=== PATIENT | female | born 1995 | race Caucasian/White ===

== ENCOUNTER → 2016-10-18 | Outpatient (CLI) | payer OTHER ==
[2016-10-18 13:07] LABS: MEAN CORPUSCULAR HEMOGLOBIN 25.6 pg (27.0-33.0); MEAN CORPUSCULAR HGB CONC 32.1 g/dl (32.0-36.5); MEAN CORPUSCULAR VOLUME 79.6 fl (80.0-96.0); RED CELL DISTRIBUTION WIDTH 13.7 % (11.5-14.5); WHITE BLOOD COUNT 8.4 K/mm3 (4.0-10.0)
[2016-10-18 13:48] LABS: ALBUMIN 4.3 GM/DL (3.2-5.2); ALBUMIN/GLOBULIN RATIO 1.48 (1.00-1.93); ALKALINE PHOSPHATASE 80 U/L (45-117); ALT/SGPT 13 U/L (12-78); AST/SGOT 20 U/L (15-37); BILIRUBIN,DIRECT 0.1 MG/DL (0.0-0.2); BILIRUBIN,TOTAL 0.4 MG/DL (0.2-1.0); CHOLESTEROL LEVEL 147 MG/DL (<200); TOTAL PROTEIN 7.2 GM/DL (6.4-8.2); TRIGLYCERIDES LEVEL 101 MG/DL (<150)
[2016-10-21 15:11] LABS: ANION GAP 7 MEQ/L (8-16); BLOOD UREA NITROGEN 7 MG/DL (7-18); CALCIUM LEVEL 8.8 MG/DL (8.5-10.1); CARBON DIOXIDE LEVEL 26 MEQ/L (21-32); CHLORIDE LEVEL 107 MEQ/L (98-107); CREATININE FOR GFR 0.57 MG/DL (0.55-1.02); GLUCOSE, FASTING 83 MG/DL (70-105); POTASSIUM SERUM 4.2 MEQ/L (3.5-5.1); SODIUM LEVEL 140 MEQ/L (136-145)
== END ==
LOC: M LAB 11:59
PROVIDERS: ATTEND Nurse Practitioner Family
DX: E34.9 Endocrine disorder, unspecified (principal)

== ENCOUNTER → 2018-09-04 | Outpatient (REF) | payer BC, OTHER ==
[2018-09-04 14:49] LABS: BASO # 0.1 10^3/uL (0.0-0.2); BASO % 0.6 % (0.0-1.0); EOS # 0.2 10^3/uL (0.0-0.50); HEMATOCRIT 41.7 % (36.0-47.0); HEMOGLOBIN 13.4 g/dl (12.0-15.5); LYMPH # 2.7 10^3/uL (1.5-6.5); LYMPH % 33.2 % (24.0-44.0); MEAN CORPUSCULAR HEMOGLOBIN 24.8 pg (27.0-33.0); MEAN CORPUSCULAR HGB CONC 32.1 g/dl (32.0-36.5); MEAN CORPUSCULAR VOLUME 77.2 fl (80.0-96.0); MONO # 0.4 10^3/uL (0.0-0.8); MONO % 4.5 % (0.0-5.0); NEUTROPHILS # 4.8 10^3/uL (1.8-7.7); NEUTROPHILS % 59.6 % (36.0-66.0); PLATELET COUNT, AUTOMATED 316 10^3/uL (150-450)
[2018-09-04 14:56] LABS: ALBUMIN 4.3 GM/DL (3.2-5.2); ALT/SGPT 24 U/L (12-78); BILIRUBIN,TOTAL 0.4 MG/DL (0.2-1.0); BLOOD UREA NITROGEN 10 MG/DL (7-18); CALCIUM LEVEL 8.8 MG/DL (8.5-10.1); CARBON DIOXIDE LEVEL 27 MEQ/L (21-32); CHLORIDE LEVEL 104 MEQ/L (98-107); CHOLESTEROL LEVEL 156 MG/DL (<200); CREATININE FOR GFR 0.73 MG/DL (0.55-1.30); GLOMERULAR FILTRATION RATE > 60.0 (>60); GLUCOSE, FASTING 94 MG/DL (70-100); HDL CHOLESTEROL 48 MG/DL (>40); LDL CHOLESTEROL 71 MG/DL (<100); NON-HDL-C 108 MG/DL; POTASSIUM SERUM 3.7 MEQ/L (3.5-5.1); SODIUM LEVEL 138 MEQ/L (136-145); TOTAL PROTEIN 7.7 GM/DL (6.4-8.2); TRIGLYCERIDES LEVEL 184 MG/DL (<150)
[2018-09-04 15:02] LABS: TESTOSTERONE 17 NG/DL (14-76)
[2018-09-04 15:32] LABS: HEMOGLOBIN A1c 6.1 %
== END ==
LOC: M LAB REF 14:11
PROVIDERS: ATTEND Nurse Practitioner Adult Health
DX: Z79.890 Hormone replacement therapy (principal)

== ENCOUNTER → 2018-11-20 | Outpatient (REF) | payer BC | LOC: M LAB REF 18:58 | PROVIDERS: ATTEND Nurse Practitioner Adult Health | DX: Z79.890 Hormone replacement therapy (principal) ==

== ENCOUNTER → 2019-01-26 | Outpatient (REF) | payer BC ==
[~2019-01-26] MED LIST: ALEV220T22 PO; BIOT1CAP3 PO; DEPO200I7 IM
[2019-01-26 18:05] LABS: BASO % 0.7 % (0.0-1.0); EOS # 0.2 10^3/uL (0.0-0.50); EOS % 2.6 % (0.0-3.0); HEMATOCRIT 42.6 % (36.0-47.0); LYMPH # 2.3 10^3/uL (1.5-6.5); LYMPH % 39.5 % (24.0-44.0); MEAN CORPUSCULAR HEMOGLOBIN 22.4 pg (27.0-33.0); MEAN CORPUSCULAR HGB CONC 30.5 g/dl (32.0-36.5); MEAN CORPUSCULAR VOLUME 73.3 fl (80.0-96.0); MONO # 0.3 10^3/uL (0.0-0.8); MONO % 5.6 % (0.0-5.0); NEUTROPHILS % 51.4 % (36.0-66.0); PLATELET COUNT, AUTOMATED 298 10^3/uL (150-450); RED BLOOD COUNT 5.81 10^6/uL (4.00-5.40); WHITE BLOOD COUNT 5.9 10^3/uL (4.0-10.0)
[2019-01-26 18:38] LABS: ALBUMIN 4.1 GM/DL (3.2-5.2); ALT/SGPT 29 U/L (12-78); BILIRUBIN,TOTAL 0.4 MG/DL (0.2-1.0); BLOOD UREA NITROGEN 10 MG/DL (7-18); CARBON DIOXIDE LEVEL 27 MEQ/L (21-32); CHLORIDE LEVEL 105 MEQ/L (98-107); CREATININE FOR GFR 0.97 MG/DL (0.55-1.30); GLOMERULAR FILTRATION RATE > 60.0 (>60); GLUCOSE, FASTING 74 MG/DL (70-100); HCG, SERUM QUANTITATIVE < 1.0 MIU/ML; POTASSIUM SERUM 5.5 MEQ/L (3.5-5.1); SODIUM LEVEL 138 MEQ/L (136-145); TOTAL PROTEIN 7.6 GM/DL (6.4-8.2)
== END ==
LOC: EDSEX → M LAB REF 17:21
PROVIDERS: ATTEND Nurse Practitioner Family
DX: Z00.00 Encounter for general adult medical examination without abnormal findings (principal)

== ENCOUNTER 2019-02-08 06:07 | Day surgery (SDC) | payer BC ==
[~2019-02-08] VITALS: Ht 165.1 cm; Wt 83.9 kg
[2019-02-08] VITALS (7 sets, daily range): BP systolic 128–133; BP diastolic 78–91
[2019-02-08] MEDS ORDERED: LR 1,000 ML IV ONE (06:15)
[2019-02-08] MEDS ORDERED: ceFAZolin SOD 1 GM in D5W MINI-BAG PLUS 50 ML IV ONE (06:15)
[2019-02-08 06:42] LABS: URINE PREG TEST NEGATIVE (NEGATIVE)
[2019-02-08] MEDS ORDERED: BACITRACIN PWD 50,000 UNITS VIAL As Ordered ONE (07:12)
[2019-02-08] MEDS ORDERED: dexameTHASONE 4 MG/ML 1ML VIAL (J1100) As Ordered ONE (07:18)
[2019-02-08] MEDS ORDERED: LIDOCAINE 2% INJ 100 MG/5 ML SDV (FOR ANES.) As Ordered ONE (07:18)
[2019-02-08] MEDS ORDERED: PROPOFOL 200 MG/20 ML VIAL As Ordered ONE (07:18)
[2019-02-08] MEDS ORDERED: ONDANSETRON 4MG/2ML VIAL (J2405) As Ordered ONE ×2 (07:18→09:57)
[2019-02-08] MEDS ORDERED: ROCURONIUM BROMIDE 50 MG/5 ML VIAL As Ordered ONE ×2 (07:18→09:20)
[2019-02-08] MEDS ORDERED: fentaNYL 250 MCG/5 ML INJECTION (J3010) As Ordered ONE (07:18)
[2019-02-08] MEDS ORDERED: MIDAZOLAM INJ 2 MG/2 ML VIAL (J2250) As Ordered ONE (07:18)
[2019-02-08] MEDS ORDERED: BUPIVACAINE LIPOSOME/PF 1.3% 20ML VIAL (13.3MG/ML)(EXPAREL)(C9290 PER1MG) As Ordered ONE (07:25)
[2019-02-08] MEDS ORDERED: PHENYLephrine HCL 500 MCG/5 ML (100MCG/ML) SYRINGE (J2370) As Ordered ONE (08:09)
[2019-02-08] MEDS ORDERED: ACETAMINOPHEN 1000MG 100ML IV BTL (OFIRMEV) (J0131 PER 10MG) As Ordered ONE (08:26)
[2019-02-08] MEDS ORDERED: HEPARIN SOD (PORCINE) 5000 UNITS/ML VIAL As Ordered ONE (08:26)
[2019-02-08] MEDS ORDERED: ePHEDrine SULFATE 25 MG/5 ML(5MG/ML) SYRINGE As Ordered ONE (09:04)
[2019-02-08] MEDS ORDERED: SEVOFLURANE INHAL SOLN 250 ML BTL As Ordered ONE (09:45)
[2019-02-08] MEDS ORDERED: NEOSTIGMINE 10 MG/10 ML VIAL (J2710) As Ordered ONE (09:57)
[2019-02-08] MEDS ORDERED: KETOROLAC 60 MG/2 ML VIAL (J1885) As Ordered ONE (09:57)
[2019-02-08] MEDS ORDERED: GLYCOPYRROLATE INJ 0.2 MG/ML 2 ML VIAL As Ordered ONE (09:57)
[2019-02-08] MEDS ORDERED: HYDROmorphone HCL 2 MG/ML 1ML VIAL (J1170) As Ordered ONE (10:02)
--- NOTE | 2019-02-08 11:43 | POST-OPPD ---
Postoperative Procedure Note Date Of Procedure: Feb 08, 2019 PREOPERATIVE DIAGNOSIS: Gender Dysphoria, breast hypertrophy POSTOPERATIVE DIAGNOSIS: same FINDINGS: Female breasts PROCEDURE: Chest masculinization procedure via bilateral subcutaneous mastectomies with free nipple graft. SURGEON: Dr Stanton GOLF COURSE SUPERINTENDENT: Dr Verma ANESTHESIA: general SPECIMENS: Right breast 815G, Left breast 912G ESTIMATED BLOOD LOSS: 75 cc REPLACED: none DRAINS: 10 mm LIANNE drains x 2 COMPLICATIONS: none POSTOPERATIVE CONDITION: stable Dict: [id number] ANDRES STANTON DO Feb 08, 2019 11:43
[2019-02-08] MEDS ORDERED: fentaNYL 100 MCG/2 ML INJECTION (J3010) IV PRN ×2 (12:15→13:45)
[2019-02-08] MEDS ORDERED: LR 1,000 ML IV SCH ×2 (12:15→13:45)
[2019-02-08] MEDS ORDERED: oxyCODONE 5MG TAB PO PRN ×2 (12:15→13:45)
[2019-02-08] MEDS: LR 1,000 ML IV SCH (12:45)
[2019-02-08] MEDS ORDERED: MORPHINE 4 MG/ML 1ML VIAL/SYRINGE (J2270) IV PRN (12:45)
[2019-02-08] MEDS ORDERED: ONDANSETRON 4MG/2ML VIAL (J2405) IV PRN (12:45)
--- NOTE | 2019-02-08 14:24 | RO ---
DATE OF PROCEDURE: 02/08/2019 PREOPERATIVE DIAGNOSIS: Gender dysphoria, breast hypertrophy. POSTOPERATIVE DIAGNOSIS: Gender dysphoria, breast hypertrophy. PROCEDURE: Chest masculinization procedure via bilateral subcutaneous mastectomies with free nipple graft. ATTENDING SURGEON: Sharmaine Madsen DO [facility] ATTENDANT: Tg Verma DO ANESTHESIA: General. SPECIMENS SENT: Right breast 815 grams, left breast 912 grams. BLOOD LOSS: 75 mL. DRAINS: Two 10 mm Dillon-Sargent drains. POSTOP CONDITION: Stable. COMPLICATIONS: No complications. PROCEDURE: This is a 23-year-old transgender male who was seen in our office for a consultation for a top procedure. He fits the criteria and healthy. Preop medical clearance was obtained. The patient had stopped testosterone three weeks ago. The psychiatric letter is on file as well. The patient is ready for surgery. All the risks, benefits and alternatives were discussed with the patient, and again discussed this morning. He is willing to go for the surgery. The mother and his fiance are present at the bedside. We are choosing to do free nipple approach. The patient was marked in the upright position in the preop holding area. We then took the patient to the operating room and placed in supine position. Preoperative antibiotics were given. Sequentials placed on the lower calves. General anesthesia was induced. 5000 units of heparin were given subcu before the procedure started. He was prepped and draped in the usual sterile fashion. We started our procedure on the right side, marked out for a double incision pattern, which started on the right side with a 10 blade and then dissection carried out using a 10 blade electrocautery and PEAK cautery. Subcuticular mastectomy was performed using a thick flap and then inferiorly we have undermined the IMF, eliminating the IMF that corresponds to the female breast and the inferior incision was lifted slightly higher to remake the male breast. We closed our incision with interrupted #0 Vicryl sutures. The area was irrigated with bacitracin irrigation and then Exparel was given into the pectoralis muscle on the lateral chest where the incision was extending fro pain control, 8 mL total. Then we started the closure with interrupted #0 Vicryl sutures and interrupted #3-0 Monocryl sutures. The medial portion of the incision was left alone, closer to the sternum, then we placed a 10 mm Dillon-Sargent drain through the lateral portion of the horizontal incision. Then we turned our attention to the left side and a mirror procedure was done. A double incision was created, the subcuticular mastectomy was done using Bovie and the PEAK. Hemostasis was obtained. The breast tissue was removed leaving thick flaps which have created a nice contour. The excess tissue was found in the middle portion between the breasts so we have readjusted and made a uniform incision on the middle to eliminate the bubble and to create male angle between the breasts. So, all of that excess tissue was resected using electrocautery as well. The left breast was irrigated with bacitracin irrigation. Exparel was given into the muscle subcu totaling 8 mL and then we started our closure with interrupted #0 Vicryl sutures, and interrupted #3-0 Monocryl sutures. A 10 mm Dillon-Sargent drain was placed through the lateral portion of the incision. We had the breast specimen on the back field and then we took a graft from the nipple areolar complex, measured 2.5 cm in diameter. The corresponding openings were made on the breast flaps and a full thickness skin graft was then placed on both sides of the chest, like I said diameter 2.5 cm, sutured in place with #4-0 chromic sutures. Bulky dressing was applied with Xeroform and a cotton ball soaked in bacitracin irrigation and was sutured in place. For the inferior incision we used Prineo dressing, bulking dressing and a wrap was done. The patient was extubated in the operating room and transferred to the recovery room in stable condition.
[2019-02-08] MEDS: ceFAZolin SOD 1 GM in D5W MINI-BAG PLUS 50 ML IV SCH (15:51)
[2019-02-08] MEDS: PERCOCET 5MG/325MG TAB PO PRN (16:09)
[2019-02-09] MEDS: ceFAZolin SOD 1 GM in D5W MINI-BAG PLUS 50 ML IV SCH (00:08)
[2019-02-09] MEDS: PERCOCET 5MG/325MG TAB PO PRN ×2 (00:09→06:06)
[2019-02-09] MEDS: LR 1,000 ML IV SCH (02:11)
[2019-02-09 07:00] VITALS: BP 109/59
--- NOTE | 2019-02-09 08:08 | IPNPDOC ---
Subjective General Date/Time Seen The patient was seen on 02/09/19 at 08:05. Subject Chief Complaint/History The patient is a 23-year-old male admitted with a reason for visit of Gender Identity Disorder, Breast Hypertrophy. S/p chest masculinization procedure POD 1. Doing well. Pain controlled. Minimal drainage from LIANNE. Tolerating diet, ambulating. Current Medications Current Medications Current Medications Medications (Trade) Dose Ordered Sig/Kim Route PRN Reason Start Time Stop Time Status Last Admin Dose Admin Cefazolin Sodium 1 gm/Dextrose 50 ml @ 100 mls/hr Q8H IV 02/08/19 16:00 02/09/19 00:29 DC 02/09/19 00:08 Fentanyl Citrate (Sublimaze) 25 mcg Q5MP PRN IV MODERATE PAIN (PS 4-7) 02/08/19 12:15 02/08/19 13:15 DC Fentanyl Citrate (Sublimaze) 25 mcg Q5MP PRN IV MODERATE PAIN (PS 4-7) 02/08/19 13:45 02/08/19 14:45 DC Lactated Ringer's 1,000 ml @ 75 mls/hr [id number] IV 02/08/19 12:45 02/09/19 02:11 Lactated Ringer's 1,000 ml @ 100 mls/hr Q10H IV 02/08/19 12:15 02/08/19 13:15 DC 02/08/19 12:15 Lactated Ringer's 1,000 ml @ 100 mls/hr Q10H IV 02/08/19 13:45 02/08/19 14:45 DC Morphine Sulfate (Morphine Sulfate Inj) 4 mg Q4HP PRN IV SEVERE PAIN (PS 8-10) 02/08/19 12:45 Ondansetron HCl (ZOFRAN INJection) 4 mg Q6HP PRN IV NAUSEA 02/08/19 12:45 Oxycodone HCl (Roxicodone, Oxyir) 5 mg ASDIRECTED PRN PO MILD/MODERATE PAIN (PS 1-7) 02/08/19 12:15 02/08/19 13:15 DC Oxycodone HCl (Roxicodone, Oxyir) 5 mg ASDIRECTED PRN PO MILD/MODERATE PAIN (PS 1-7) 02/08/19 13:45 02/08/19 14:45 DC Oxycodone/ Acetaminophen (Percocet 5mg/ 325mg Tablet) 1 tab Q4HP PRN PO MODERATE PAIN (PS 5-7) 02/08/19 12:45 02/09/19 06:06 Allergies Coded Allergies: nystatin (Verified Allergy, Intermediate, rash, 01/30/19) Objective Physical Examination Examination GENERAL APPEARANCE:Patient seen, laying in bed, awake, alert, and oriented. Comfortable, in no acute distress. SKIN: Warm and moist. CHEST: Incision intact. NAC bolster dressing in place. Flaps viable, pink. Minimal post op pain. HEENT: Normocephalic, atraumatic. [place] palpebral conjunctiva, anicteric sclerae. Lips and mucosa appear moist. NECK: Supple, no thyromegaly. No obvious jugular venous distention. LUNGS: Clear to auscultation bilaterally. No wheezing appreciated. HEART: No chest wall abnormalities. Regular rate and rhythm with no murmurs appreciated. Vital Signs Vital Signs Date Time Temp Pulse Resp B/P (MAP) Pulse Ox O2 Delivery O2 Flow Rate FiO2 02/09/19 07:00 97.8 94 18 109/59 (76) 96 02/08/19 12:10 2 I&Os I&O- Last 24 Hours up to 6 AM 02/09/19 06:00 Intake Total 2960 ml Output Total 970 ml Balance 1990 ml Impression S/p chest masculinization procedure. POD 1 Stable for discharge Pain controlled Instructions given to patient and fiance. LIANNE drain monitoring at home Dressing changed today, not to remove at home. F/up plastic surgery office. Plan / VTE VTE Prophylaxis Ordered?: Yes ANDRES STANTON DO Feb 09, 2019 08:08
[2019-02-09] MEDS ORDERED: PERCOCET PO (08:11)
== END 2019-02-09 11:05 | disposition home or self-care (01) ==
LOC: EDSEX → M SDC 06:07 → EDSEX 07:30 → M MS5PR 13:10 → M SDC 02-09 11:05
PROVIDERS: ATTEND Plastic Surgery Surgery of the Hand
DX: N62 Hypertrophy of breast (principal); F64.9 Gender identity disorder, unspecified; F41.9 Anxiety disorder, unspecified; F32.9 Major depressive disorder, single episode, unspecified; Z79.899 Other long term (current) drug therapy
CPT/HCPCS: 19304; 84703; 88305; 96361; 96374; 96376; C9290; J0131; J0690; J1100; J1170; J1885; J2250; J2370; J2405; J2710; J3010

== ENCOUNTER → 2020-06-22 | Outpatient (CLI) | payer SELFPAY ==
[~2020-06-22] MED LIST changes: +HYDR25OIN TOP; +PERCOCET PO
== END ==
LOC: M LABSMTC 10:59
PROVIDERS: ATTEND Pediatrics
DX: Z20.828 Contact with and (suspected) exposure to other viral communicable diseases (principal)

== ENCOUNTER → 2020-10-25 | Outpatient (CLI) | payer SELFPAY | LOC: EDSEX → M LABSMTC 08:52 | PROVIDERS: ATTEND Anesthesiology | DX: Z01.818 Encounter for other preprocedural examination (principal); Z11.52 Encounter for screening for COVID-19 ==

== ENCOUNTER → 2020-11-04 | Outpatient (CLI) | payer SELFPAY ==
[~2020-11-04] MED LIST changes: +OXYC1TAB23 PO
== END ==
LOC: M LABSMTC 10:03
PROVIDERS: ATTEND Pediatrics
DX: Z11.52 Encounter for screening for COVID-19 (principal)

== ENCOUNTER → 2021-08-08 | Outpatient (REF) | LOC: M LABSMTC 09:41 | PROVIDERS: ATTEND Pediatrics | DX: Z11.52 Encounter for screening for COVID-19 (principal) ==

== ENCOUNTER 2022-04-05 00:12 | Emergency (ER) | payer OTHER ==
[~2022-04-05] VITALS: Ht 165.1 cm; Wt 79.6 kg
[2022-04-05 00:13] VITALS: BP 132/94
[2022-04-05] MEDS ORDERED: GUAI100L6 PO (00:23)
[2022-04-05] MEDS ORDERED: CETI-24 PO (00:23)
[2022-04-05] MEDS ORDERED: FLUO20CA22 PO (00:23)
[2022-04-05] MEDS ORDERED: OXYB10TA23 PO (00:23)
[2022-04-05] MEDS ORDERED: vit d3 PO (00:23)
== END 2022-04-05 05:31 | disposition left against medical advice (07) ==
LOC: EDSEX 00:12 → M ED 00:12
DX: Z53.21 Procedure and treatment not carried out due to patient leaving prior to being seen by health care provider (principal)

== ENCOUNTER → 2022-10-07 | Outpatient (REF) | payer OTHER ==
[~2022-10-07] MED LIST changes: +CETI-24 PO; +FLUO20CA22 PO; +GUAI100L6 PO; +OXYB10TA23 PO; +vit d3 PO
[2022-10-07 19:10] LABS: BASO # 0.1 10^3/uL (0.0-0.2); BASO % 0.6 % (0.0-1.0); EOS # 0.5 10^3/uL (0.0-0.5); EOS % 4.8 % (0.0-3.0); HEMATOCRIT 47.4 % (42.0-52.0); HEMOGLOBIN 14.8 g/dl (13.5-17.5); LYMPH # 4.5 10^3/uL (1.5-5.0); LYMPH % 46.4 % (24.0-44.0); MEAN CORPUSCULAR HEMOGLOBIN 26.6 pg (27.0-33.0); MEAN CORPUSCULAR HGB CONC 31.2 g/dl (32.0-36.5); MEAN CORPUSCULAR VOLUME 85.3 fl (80.0-96.0); MONO # 0.5 10^3/uL (0.0-0.8); MONO % 5.2 % (2.0-8.0); NEUTROPHILS # 4.2 10^3/uL (1.5-8.5); NEUTROPHILS % 42.9 % (36.0-66.0); PLATELET COUNT, AUTOMATED 277 10^3/uL (150-450); RED BLOOD COUNT 5.56 10^6/uL (4.30-6.10); WHITE BLOOD COUNT 9.8 10^3/uL (4.0-10.0)
[2022-10-07 19:15] LABS: HEMOGLOBIN A1c 5.2 % (4.0-6.0)
[2022-10-07 19:37] LABS: ALBUMIN 4.1 G/DL (3.2-5.2); ALKALINE PHOSPHATASE 77 U/L (46-116); ALT/SGPT 19 U/L (7.0-40); AST/SGOT 18 U/L (<34); BILIRUBIN,TOTAL 0.4 MG/DL (0.3-1.2); BLOOD UREA NITROGEN 6 MG/DL (9-23); CALCIUM LEVEL 9.3 MG/DL (8.5-10.1); CARBON DIOXIDE LEVEL 29 MMOL/L (20-31); CHLORIDE LEVEL 103 MMOL/L (98-107); CHOLESTEROL LEVEL 179 MG/DL (<200); CHOLESTEROL RISK RATIO 4.44 (<5); CREATININE FOR GFR 0.84 MG/DL (0.70-1.30); GLOMERULAR FILTRATION RATE > 60.0 (>60); GLUCOSE, FASTING 77 MG/DL (60-100); HDL CHOLESTEROL 40.3 MG/DL (>40); LDL CHOLESTEROL 85.5 MG/DL (<100); NON-HDL-C 138.7 MG/DL; POTASSIUM SERUM 4.5 MMOL/L (3.5-5.1); SODIUM LEVEL 136 MMOL/L (136-145); TESTOSTERONE 628 NG/DL (241-827); TOTAL PROTEIN 6.9 G/DL (5.7-8.2); TRIGLYCERIDES LEVEL 266 MG/DL (<150)
== END ==
LOC: M LAB REF 17:39
PROVIDERS: ATTEND Pediatrics
DX: Z68.29 Body mass index [BMI] 29.0-29.9, adult (principal); F41.9 Anxiety disorder, unspecified

== ENCOUNTER → 2024-05-31 | Outpatient (REF) | payer OTHER ==
[~2024-05-31] MED LIST changes: +FLUO-365 PO; -FLUO20CA22 PO
[2024-05-31 19:24] LABS: BASO % 0.5 % (0.0-1.0); EOS # 0.2 10^3/uL (0.0-0.5); EOS % 2.5 % (0.0-3.0); HEMATOCRIT 44.4 % (42.0-52.0); HEMOGLOBIN 14.4 g/dl (13.5-17.5); LYMPH # 2.9 10^3/uL (1.5-5.0); LYMPH % 39.3 % (24.0-44.0); MEAN CORPUSCULAR HEMOGLOBIN 26.7 pg (27.0-33.0); MEAN CORPUSCULAR HGB CONC 32.4 g/dl (32.0-36.5); MEAN CORPUSCULAR VOLUME 82.2 fl (80.0-96.0); MONO # 0.3 10^3/uL (0.0-0.8); MONO % 4.6 % (2.0-8.0); NEUTROPHILS # 3.9 10^3/uL (1.5-8.5); PLATELET COUNT, AUTOMATED 301 10^3/uL (150-450); WHITE BLOOD COUNT 7.3 10^3/uL (4.0-10.0)
[2024-05-31 19:58] LABS: CHOLESTEROL LEVEL 204 MG/DL (<200); CHOLESTEROL RISK RATIO 5.25 (<5); HDL CHOLESTEROL 38.8 MG/DL (>40); NON-HDL-C 165.2 MG/DL; TRIGLYCERIDES LEVEL 440 MG/DL (<150)
[2024-05-31 19:59] LABS: TESTOSTERONE 610 NG/DL (241-827)
== END ==
LOC: M LAB REF 16:35
PROVIDERS: ATTEND Pediatrics
DX: F64.0 Transsexualism (principal)

== ENCOUNTER → 2024-06-28 | Outpatient (REF) | payer OTHER ==
[2024-06-28 14:05] LABS: ALBUMIN 3.9 G/DL (3.2-5.2); ALKALINE PHOSPHATASE 99 U/L (40-129); ALT/SGPT 29 U/L (7.0-40); AST/SGOT 20 U/L (<34); BILIRUBIN,TOTAL 0.4 MG/DL (0.3-1.2); BLOOD UREA NITROGEN 11 MG/DL (9-23); CALCIUM LEVEL 9.7 MG/DL (8.5-10.1); CARBON DIOXIDE LEVEL 29 MMOL/L (20-31); CHLORIDE LEVEL 105 MMOL/L (98-107); CREATININE FOR GFR 0.86 MG/DL (0.70-1.30); GLOMERULAR FILTRATION RATE > 60.0 (>60); GLUCOSE, FASTING 94 MG/DL (60-100); POTASSIUM SERUM 4.3 MMOL/L (3.5-5.1); SODIUM LEVEL 141 MMOL/L (136-145); TOTAL PROTEIN 7.2 G/DL (5.7-8.2)
[2024-06-28 14:59] LABS: HEMOGLOBIN A1c 5.5 % (4.0-6.0)
== END ==
LOC: M LAB REF 12:44
PROVIDERS: ATTEND Pediatrics
DX: E66.9 Obesity, unspecified (principal)

== ENCOUNTER → 2025-04-02 | Outpatient (REF) | payer OTHER ==
[2025-04-02 18:51] LABS: BASO # 0.0 10^3/uL (0.0-0.2); BASO % 0.4 % (0.0-1.0); EOS # 0.0 10^3/uL (0.0-0.5); EOS % 0.0 % (0.0-3.0); LYMPH # 3.2 10^3/uL (1.5-5.0); LYMPH % 35.2 % (24.0-44.0); MONO # 0.5 10^3/uL (0.0-0.8); MONO % 5.8 % (2.0-8.0); NEUTROPHILS # 5.2 10^3/uL (1.5-8.5); NEUTROPHILS % 58.2 % (36.0-66.0); PLATELET COUNT, AUTOMATED 347 10^3/uL (150-450)
[2025-04-02 19:13] LABS: CHOLESTEROL LEVEL 219 MG/DL (<200); CHOLESTEROL RISK RATIO 5.98 (<5); NON-HDL-C 182.4 MG/DL; TRIGLYCERIDES LEVEL 616 MG/DL (<150)
[2025-04-02 19:16] LABS: TESTOSTERONE 678 NG/DL (241-827)
== END ==
LOC: M LAB REF 17:06
PROVIDERS: ATTEND Pediatrics
DX: F64.0 Transsexualism (principal)

== ENCOUNTER → 2025-06-05 | Outpatient (REF) | payer OTHER ==
[2025-06-05 16:28] LABS: BASO # 0.0 10^3/uL (0.0-0.2); BASO % 0.4 % (0.0-1.0); EOS # 0.2 10^3/uL (0.0-0.5); EOS % 2.0 % (0.0-3.0); LYMPH # 3.3 10^3/uL (1.5-5.0); LYMPH % 38.5 % (24.0-44.0); MONO # 0.5 10^3/uL (0.0-0.8); MONO % 5.8 % (2.0-8.0); NEUTROPHILS # 4.5 10^3/uL (1.5-8.5); NEUTROPHILS % 53.2 % (36.0-66.0); PLATELET COUNT, AUTOMATED 296 10^3/uL (150-450)
[2025-06-05 16:56] LABS: CHOLESTEROL LEVEL 200 MG/DL (<200); CHOLESTEROL RISK RATIO 5.01 (<5); NON-HDL-C 160.1 MG/DL; TRIGLYCERIDES LEVEL 563 MG/DL (<150)
[2025-06-05 17:00] LABS: TESTOSTERONE 420 NG/DL (241-827)
== END ==
LOC: M LAB REF 16:07
PROVIDERS: ATTEND Pediatrics
DX: F64.0 Transsexualism (principal)